=== PATIENT | male | born 1995 | race Caucasian/White ===

== ENCOUNTER 2017-01-12 15:11 | Emergency (ER) | payer OTHER ==
[~2017-01-12] VITALS: Ht 167.6 cm; Wt 57.6 kg
[2017-01-12 15:28] VITALS: BP 106/57
--- NOTE | 2017-01-12 15:56 | Emergency Room Report ---
History of Present Illness General Chief Complaint: Pain Source: Patient Present Illness HPI 21 YO male presents emergency department complaining of itchy rash of the left forearm and anterior chest x3 days. Patient denies nausea, vomiting, fevers, chills, wheezing, SOB, or swelling of the lips or tongue. Patient states that one other person at a sober living has similar symptoms. Patient also states that he needs ENT specialist as he broke his nose on multiple occasions and was told he may need surgery. Patient reports chronic congestion and states that he was previously prescribed Nasonex which was taken away at a sober living. Patient states he has 2/10 pain in the nose described as pressure times one year. pt. denies nasal discharge. Pt. also reports nausea x 2 days with hx of gastritis. denies abdominal tenderness, denies constipation/diarrhea, denies joint pain, or rashes elsewhere on the body. Denies CP, Palpitations, LOC, AMS, dizziness, Changes in Vision, Sensation, paresthesias, or a sudden severe headache. Allergies: Coded Allergies: No Known Allergies (Unverified , 01/12/17) Patient History Past Medical History: see triage record Past Surgical History: none Pertinent Family History: none Immunizations: UTD Reviewed Nursing Documentation: PMH: Agreed, PSxH: Agreed Nursing Documentation-PMH Past Medical History: No Stated History Review of Systems All Other Systems: negative except mentioned in HPI Physical Exam Vital Signs Date Time Temp Pulse Resp B/P Pulse Ox O2 Delivery O2 Flow Rate FiO2 01/12/17 15:17 98.2 95 14 106/57 97 Room Air Sp02 EP Interpretation: reviewed, normal General Appearance: no apparent distress, alert, GCS 15, non-toxic Head: normocephalic, atraumatic Eyes: bilateral eye PERRL, bilateral eye normal inspection ENT: hearing grossly normal, normal pharynx, no angioedema, normal voice Neck: full range of motion, supple/symm/no masses Respiratory: lungs clear, normal breath sounds, speaking full sentences Cardiovascular #1: regular rate, rhythm, no edema, normal capillary refill Gastrointestinal: normal bowel sounds, non tender, soft, no guarding, no rebound Musculoskeletal: back normal, gait/station normal, normal range of motion, non- tender Neurologic: alert, oriented x3, responsive, motor strength/tone normal, sensory intact, speech normal Psychiatric: judgement/insight normal, memory normal, mood/affect normal Skin: normal color, warm/dry, well hydrated, rash - multiple erythematous papules with surrounding blanching erythema on the left forearm, and the anterior abdomen, non vessicular, non-blistering, no sloughing. Lymphatic: no adenopathy Medical Decision Making PA Attestation Dr. Nunes is my supervising Physician whom patient management has been discussed with. Diagnostic Impression: Primary Impression: Dermatitis Additional Impressions: History of fracture of nasal bone Gastritis Qualified Codes: K29.00 - Acute gastritis without bleeding Insect bite Qualified Codes: W57.XXXA - Bitten or stung by nonvenomous insect and other nonvenomous arthropods, initial encounter ER Course 21 YO male presents emergency department complaining of itchy rash of the left forearm and anterior chest x3 days. Patient denies nausea, vomiting, fevers, chills, wheezing, SOB, or swelling of the lips or tongue. Patient states that one other person at a sober living has similar symptoms. Patient also states that he needs ENT specialist as he broke his nose on multiple occasions and was told he may need surgery. Patient reports chronic congestion and states that he was previously prescribed Nasonex which was taken away at a sober living. Patient states he has 2/10 pain in the nose described as pressure times one year. pt. denies nasal discharge. Pt. also reports nausea x 2 days with hx of gastritis. denies abdominal tenderness, denies constipation/diarrhea, denies joint pain, or rashes elsewhere on the body. Ddx considered but are not limited to cellulitis, scabies, shingles, varicella, dermatitis, urticaria, eczema, tinea, insect bites Vital signs: are WNL, pt. is afebrile H&PE are most consistent with insect bites with localized dermatitis. blanching erythema no evidence of secondary infection at this time. ORDERS: none required at this time, the diagnosis is clinical ED INTERVENTIONS: -Benadryl PO -Zofran PO DISCHARGE: At this time pt. is stable for d/c to home. Will provide printed patient care instructions, and any necessary prescriptions. Care plan and follow up instructions have been discussed with the patient prior to discharge. Last Vital Signs Date Time Temp Pulse Resp B/P Pulse Ox O2 Delivery O2 Flow Rate FiO2 01/12/17 15:28 98.2 14 106/57 97 Room Air 01/12/17 15:17 95 Disposition: HOME, SELF-CARE Condition: Stable Scripts Mometasone Furoate (NASONEX) 17 Gm Klemme.pump 2 SPRAYS NASAL DAILY, #17 GM 0 Refills Prov: Graciela Marcelo 01/12/17 Ondansetron Odt* (ZOFRAN ODT*) 4 Mg Tab.rapdis 4 MG ORAL Q6H Y for Nausea & Vomiting, #10 TAB Prov: Graciela Marcelo 01/12/17 Ranitidine Hcl* (ZANTAC*) 150 Mg Tablet 150 MG ORAL TWICE A DAY for 7 Days, #14 TAB Prov: Graciela Marcelo 01/12/17 Diphenhydramine Hcl (BENADRYL ALLERGY) 25 Mg Tablet 25 MG PO QID for 7 Days, #28 TAB Prov: Graciela Marcelo 01/12/17 Patient Instructions: Gastritis, Adult, [id number], Rash, [id number] Additional Instructions: Take medications as directed. Follow up with PCP in 3-5 days -- Follow up with ENT specialist - this referral needs to be given by PCP. Return sooner to ED if new symptoms occur, or current symptoms become worse. - Please note that this Emergency Department Report was dictated using [employer] line assembler technology software, occasionally this can lead to erroneous entry secondary to interpretation by the dictation equipment. Graciela Marcelo Jan 12, 2017 15:56
[2017-01-12] MEDS ORDERED: BENADRYL ALLERG25 M1 PO (15:58)
[2017-01-12] MEDS ORDERED: ZANTAC150 MG ORAL (15:58)
[2017-01-12] MEDS ORDERED: ZOFRAN ODT4 MG ORAL (15:58)
[2017-01-12] MEDS ORDERED: NASONEX17 GM NASAL (15:58)
[2017-01-12 16:06] VITALS: BP 106/57
== END 2017-01-12 16:05 | disposition home or self-care (01) ==
LOC: EMR 16:00
DX: L30.9 Dermatitis, unspecified (principal); K29.70 Gastritis, unspecified, without bleeding
CPT/HCPCS: 99284